=== PATIENT | male | born 1945 ===

== ENCOUNTER 2017-10-18 19:09 | Emergency (ER) | payer MEDICARE, BC ==
[2017-10-18 19:46] VITALS: BP 130/84
[2017-10-18] MEDS ORDERED: Azithromycin TAB* 250 MG PO ONE (20:18)
--- NOTE | 2017-10-18 20:28 | UC ---
Aundrea Mcghee Emily, scribed for Morgan Gar MD on 10/18/17 at 2012 . Throat Pain/Nasal Sheldon HPI - HPI Summary HPI Summary: This patient is a 71 year old M presenting to urgent care accompanied by with a chief complaint of throat pain that began three days ago. The patient rates the pain 6/10 in severity. Symptoms aggravated by swallowing. Symptoms alleviated by nothing. Patient reports ear ache. Pt reports being diagnosed with COPD 4 months ago, and having been on steroids since. Medications reviewed. Allergies reviewed. - History of Current Complaint Chief Complaint: UCEar Stated Complaint: LEFT EAR ACHE Time Seen by Provider: 10/18/17 20:03 Hx Obtained From: Patient Onset/Duration: Sudden Onset, Lasting Days, Still Present Severity: Moderate Pain Intensity: 6 Pain Scale Used: 0-10 Numeric Cough: None Associated Signs & Symptoms: Positive: Other - Throat pain and ear ache - Allergies/Home Medications Allergies/Adverse Reactions: Allergies Allergy/AdvReac Type Severity Reaction Status Date / Time Penicillins Allergy seizure Verified 10/18/17 19:48 Home Medications: Home Medications Fluticasone/Vilanterol MDI(NF) [Breo Ellipta MDI 200/25(NF)] 1 puff INH DAILY [History Confirmed 10/18/17] PMH/Surg Hx/FS Hx/Imm Hx Previously Healthy: No Endocrine History: Other Other Endocrine History: Negative diabetes Respiratory History: COPD - Surgical History Surgical History: Yes Surgery Procedure, Year, and Place: left inguinal hernia - Family History Known Family History: Negative: Cardiac Disease, Diabetes - Social History Occupation: Employed Full-time Lives: With Family Alcohol Use: Rare Substance Use Type: Marijuana Smoking Status (MU): Never Smoked Tobacco Review of Systems Constitutional: Other - Negative fever ENT: Sore Throat, Ear Ache All Other Systems Reviewed And Are Negative: Yes Physical Exam - Summary Physical Exam Summary: General: well-appearing, no pain distress Skin: warm, color reflects adequate perfusion, dry Head: normal Eyes: EOMI, MICKEY ENT: L TM reflected cone of light is elliptical, no fluid or erythema seen. Ear canals are normal. Small white patches in the back of the mouth in the lateral areas that are posterior the posterior molars. Neck: supple, nontender Respiratory: CTA, breath sounds present Cardiovascular: RRR Abdomen: soft, nontender Bowel: present Musculoskeletal: normal, strength/ROM intact Neurological: sensory/motor intact, A&O x3 Psychological: affect/mood appropriate Triage Information Reviewed: Yes Vital Signs: Initial Vital Signs Temp 98.8 F 10/18/17 19:37 Pulse 91 10/18/17 19:37 Resp 16 10/18/17 19:37 BP 130/84 10/18/17 19:37 Pulse Ox 92 10/18/17 19:37 Vital Signs Reviewed: Yes Throat Pain/Nasal Course/Dx - Course Course Of Treatment: THERE ARE SOME SMALL WHITE PLAQUES IN THE MOUTH. WILL TREAT THRUSH. RX ZPAC. F/U PMD; RECHECK SOONER IF WORSE. I DISCUSSED THE NEED FOR FURTHER EVALUATION IF NOT COMPLETELY IMPROVED. - Differential Dx/Diagnosis Provider Diagnoses: THROAT PAIN. LEFT EAR PAIN Discharge - Sign-Out/Discharge Documenting (check all that apply): Discharge/Admit/Transfer - Discharge Plan Condition: Stable Disposition: HOME Prescriptions: Azithromycin 250 mg PO DAILY #4 tablet Nystatin SUSPENSION ORAL SYR* 5 ml PO QID PRN #140 ml PRN Reason: Sore Throat Patient Education Materials: Pharyngitis (ED), Oral Candidiasis (ED), Earache ( ED) Referrals: [facility] [Outside] Additional Instructions: FOLLOW UP WITH YOUR DOCTOR. GET RECHECKED FOR ANY WORSENING OF YOUR CONDITION OR QUESTIONS OR CONCERNS. - Billing Disposition and Condition Condition: STABLE Disposition: HOME The documentation as recorded by the Aundrea sky Emily accurately reflects the service I personally performed and the decisions made by me, Morgan Gar MD.
== END 2017-10-18 20:30 | disposition home or self-care (01) ==
LOC: UCEAST 19:09
DX: R07.0 Pain in throat (principal); H92.02 Otalgia, left ear; J44.9 Chronic obstructive pulmonary disease, unspecified; Z88.0 Allergy status to penicillin
CPT/HCPCS: 99202; A9270-GY; G0463